=== PATIENT | female | born 1965 | race Caucasian/White ===

== ENCOUNTER → 2018-02-03 08:18 | Outpatient (CLI) | payer MEDICARE, OTHER, SELFPAY ==
--- NOTE | 2018-02-03 08:28 | US_ITS ---
US abdomen limited Ordering Physician: Maynor London Patient Age: 52 years: Female HISTORY: ITS.REASON: ABDOMINAL PAIN RUQ pain 2 months nodularity diarrhea and indigestion TECHNIQUE: Ultrasound right upper quadrant COMPARISON : No prior FINDINGS Pancreas. Unremarkable. Liver. No focal lesions no biliary ductal dilatation. Portal vein normal diameter and normal direction flow. Gallbladder. Trace sludge and debris but no discrete or shadowing gallstones. Gallbladder appears mildly elongated & distended but not tense. It 10 cm length.. No gallbladder wall thickening or other findings. If RUQ pain persist consider HIDA scan Common duct. Normal diameter measuring nearly 2 mm at hilum of liver. Right kidney appears normal. Normal size 9.65 seem in length. No hydronephrosis or mass. IMPRESSION: 1. No gallstones. Only Scant debris gallbladder noted Generous size gallbladder but does not appear to be tense or inflamed. No wall thickening At RUQ pain persist consider HIDA scan 2. Pancreas liver right kidney unremarkable
== END ==
PROVIDERS: Family Provider Emergency Medicine; PCP Family Medicine; Visit Provider Family Medicine
DX: R10.9 Unspecified abdominal pain (principal)
CPT/HCPCS: 76705

== ENCOUNTER → 2020-12-14 08:00 | Outpatient (CLI) | payer MEDICARE, OTHER, SELFPAY ==
[2020-12-14 09:15] LABS: Chol/HDL Ratio 2.9 (1-3.5); Cholesterol 201 mg/dl (140-200); HDL Cholesterol 70 mg/dl (40-60); Triglycerides 54 mg/dl (30-150); VLDL Cholesterol 11 mg/dL (0-40)
[2020-12-14 09:25] LABS: Direct LDL Cholesterol 103.16 mg/dL (100-129)
[2020-12-14 09:30] LABS: 25-OH Vitamin D, Total 18.8 ng/mL (30-100)
[2020-12-15 09:35] LABS: Triiodothyronine (T3) Free 1.6 pg/mL (2.0-4.4)
[2020-12-18 13:01] LABS: Chloride 105 mmol/L (98-107); Potassium 4.5 mmoL/L (3.5-5.1); Sodium 136 mmol/L (136-145)
[2020-12-18 13:03] LABS: Alanine Aminotransferase 11 U/L (12-78); Aspartate Amino Transferase 23 U/L (14-36); Blood Urea Nitrogen 5 mg/dl (7-17); Estimated Glomerular Filt Rate 86 ml/min (>60); GFR (African American) 104 ML/MIN (>60)
[2020-12-18 13:04] LABS: Albumin Level 4.3 g/dl (3.5-5.0); Albumin/Globulin Ratio 1.3 (1.1-1.8); Alkaline Phosphatase 68 U/L (38-126); Anion Gap 11.5 mEq/L (5-15); Bilirubin,Total 0.3 mg/dl (0.2-1.3); Calcium 9.4 mg/dl (8.4-10.2); Carbon Dioxide 24 mmol/L (22.0-30.0); Globulin 3.3 g/dL (1.3-3.2); Glucose 107 mg/dl (74-100); Total Protein,Serum 7.6 g/dl (6.3-8.2)
== END ==
PROVIDERS: Visit Provider Nurse Practitioner Family
DX: E78.5 Hyperlipidemia, unspecified (principal); E55.9 Vitamin D deficiency, unspecified; E89.0 Postprocedural hypothyroidism
CPT/HCPCS: 36415; 80053; 80061; 82306; 84439; 84443; 84481

== ENCOUNTER 2021-03-11 11:19 | Emergency (ER) | payer MEDICARE, OTHER, SELFPAY ==
[2021-03-11 11:31] VITALS: BP 182/104; PULSE 89; RESP 18; TEMP 36.4; O2SAT 96; BMI 27.4
--- NOTE | 2021-03-11 11:32 | XR_ITS ---
PROCEDURE: XR FOOT LT MIN 3V CLINICAL INDICATION: PAIN COMPARISON: No exams were available for comparison FINDINGS: No fracture or dislocation. No lytic or blastic change. There is normal mineralization. The joint spaces are well-preserved. No significant degenerative/arthritic changes. No erosive changes evident. Other findings:None. IMPRESSION: No acute findings. Dictated by: Heath Carrera MD 03/11/2021 12:02 Heath Carrera MD in [place] 03/11/2021 12:02
--- NOTE | 2021-03-11 11:44 | HMH.EDUTC ---
[facility] Disposition Clinical Impression: Foot contusion Qualifiers: Encounter type: initial encounter Laterality: left Qualified Code(s): S90.32XA - Contusion of left foot, initial encounter Disposition: Home, Self-Care Condition on Discharge: Good Instructions: Contusion, How To Perform RICE (Rest, Ice, Compress, Elevate), DI for Foot Sprain Additional Instructions: *weight bearing as tolerated *RICE, Rest the extremity, Ice 15-20 minutes 3-4 times daily, Compress- wear the alberto wrap as discussed as much as possible to help reduce swelling and pain, Elevate the extremity when at rest *Alberto wrap is for support and help control swelling, use it except in the shower. Be sure that is not to tight but not to loose either *Elevate when resting *Ibuprofen every 6-8 hours as needed for pain an inflammation. If need something more can take Tylenol in between doses of Ibuprofen to help Immediately follow up with your family doctor for new or worsening of symptoms, or no noticeable improvement over the next 3-5 days Follow up with Family Doctor for re-evaluation of elevated blood pressure Referrals: Eri Moy [Primary Care Provider] - As needed Time of Disposition: 12:08 Medical Decision Making - Cale Inquiry Pt receiving controlled substance: No Cale was queried for this patient: No Vital Signs: 03/11/21 11:31 03/11/21 12:13 03/11/21 12:14 Temperature 97.6 F 98 F Temperature Source Oral Pulse Rate 87 Pulse Rate [Right] 89 Respiratory Rate 18 18 Blood Pressure 143/90 H Blood Pressure [Right Arm] 182/104 H 143/90 H Blood Pressure Mean [Right Arm] 130 107 Blood Pressure Source [Right Arm] Automatic Cuff Blood Pressure Position [Right Arm] Sitting 02 Sat by Pulse Oximetry 96 - Radiology Data #1 Image(s): Foot/Toes Image Reviewed: Yes I have reviewed radiologist's interpretation No acute findings. [facility] HPI - General Stated complaint: ao 12/30/20 injury to Lt foot Time Seen by Provider: 03/11/21 11:44 Mode of Arrival: Ambulatory Source of Information: Patient Limitations: No Limitations Description of Symptoms (Recalled from Triage Doc. by RN): pt states she hit her L foot on a bedframe ten days ago. she is still having pain and bruising. pt states she has a bone spur in the same area in the top of the foot. HEENT Symptoms (Recalled from RN notes): No Resp Symptoms (Recalled from RN notes): No Skin Symptoms (Recalled from RN notes): No MS Symptoms (Recalled from RN notes): Yes (L foot pain) Functional Status (Recalled from RN notes): na - History of Present Illness Provider Complaint: Patient state that about a week ago she hit the top of her left foot on a metal bed frame and had swelling and bruising States that the bruising is better but still having swelling and pain on and off when she walks States that she was concerned due to having previously been told she has a bone spur in the area that she hit so she came in to get checked - Related Data Allergies Allergy/AdvReac Type Severity Reaction Status Date / Time amoxicillin [AMOXICILLIN] Allergy Mild Verified 03/11/21 11:31 - Worker's Comp Is this a Worker's Comp case?: No [facility] History - Hepatitis A Screen Drug use history?: No High risk sexual behaviors?: No History of sexually transmitted infection?: No Currently employed?: No Childcare worker?: No Do you have indoor plumbing?: Yes Do you have electricity?: Yes Attestation statement:: This patient has been screened for Hepatitis A risk factors. I have reviewed the patient's past medical history: Yes ROS Obtained: Yes All systems reviewed & no additional complaints, Yes Systems reviewed as appropriate & no additional complaints - Constitutional Constitutional: Reports system reviewed and no additional complaints, except as docu, Denies body ache, Denies chills, Denies fever(s), Denies headache(s) - ENT Ears, Nose, Mouth, and Throat: Reports system reviewed and no addit
[2021-03-11 12:13] VITALS: BP 143/90
[2021-03-11 12:14] VITALS: BP 143/90; PULSE 87; RESP 18; TEMP 36.6
== END 2021-03-11 12:16 | disposition home or self-care (01) ==
PROVIDERS: Emergency Provider Nurse Practitioner; PCP Nurse Practitioner Family
DX: S90.32XA Contusion of left foot, initial encounter (principal); W22.8XXA Striking against or struck by other objects, initial encounter; Y92.013 Bedroom of single-family (private) house as the place of occurrence of the external cause
CPT/HCPCS: 73630; 99202; G0463

== ENCOUNTER → 2022-04-29 18:53 | Outpatient (CLI) | payer MEDICARE, OTHER, SELFPAY ==
--- NOTE | 2022-04-29 19:10 | XR_ITS ---
PROCEDURE INFORMATION: Exam: XR Left Foot Exam date and time: 04/29/2022 7:11 PM Age: 56 years old Clinical indication: Pain; Foot; Left; Additional info: Injury to left foot TECHNIQUE: Imaging protocol: Radiologic exam of the Left foot. Views: 3 or more views. COMPARISON: CR XR FOOT LT MIN 3V 03/11/2021 11:51 AM FINDINGS: Bones/joints: No evidence of acute displaced cortical disruption or dislocation. Regional bone density and trabecular pattern have a satisfactory appearance. Mild osteophytosis and eburnation of the midfoot structures and toes. Soft tissues: Normal. IMPRESSION: 1. Mild degenerative changes. 2. No acute fracture is identified.
--- NOTE | 2022-04-29 19:11 | XR_ITS ---
PROCEDURE INFORMATION: Exam: XR Cervical Spine Exam date and time: 04/29/2022 7:05 PM Age: 56 years old Clinical indication: Pain; Other: Parethesia; Additional info: Parethesia bilateral down arms TECHNIQUE: Imaging protocol: Radiologic exam of the cervical spine. Views: 2 or 3 views. COMPARISON: CR CS5 CERVICAL SPINE 4 OR 5 VIEWS 09/04/2017 11:23 AM FINDINGS: Bones/joints: Degenerative spondylosis and facet arthropathy. No acute fracture or spondylolisthesis. Mild rotoscoliosis. Bone demineralization. Soft tissues: Unremarkable. Other findings: Minimal regional arterial calcification. IMPRESSION: Mild degenerative disc and facet disease.
== END ==
PROVIDERS: PCP Nurse Practitioner Family; Visit Provider Nurse Practitioner Family
DX: M79.672 Pain in left foot (principal); S99.922A Unspecified injury of left foot, initial encounter; M54.2 Cervicalgia; R20.2 Paresthesia of skin
CPT/HCPCS: 72040; 73630

== ENCOUNTER → 2022-07-18 13:47 | Outpatient (CLI) | payer MEDICARE, OTHER, SELFPAY ==
--- NOTE | 2022-07-18 13:53 | XR_ITS ---
FINAL REPORT CLINICAL HISTORY: left toe fx COMPARISON: 04/29/2022 FINDINGS: Left foot Three views were obtained. There is a subacute fracture at the distal aspect of the 2nd proximal phalanx with interval healing. IMPRESSION: Healing fracture as above. Reviewed, Interpreted and Dictated by Rowdy Lugo III, MD Transcribed by Magda Martin Authenticated and [facility]
== END ==
PROVIDERS: PCP Nurse Practitioner Family; Visit Provider Orthopaedic Surgery
DX: S99.922A Unspecified injury of left foot, initial encounter (principal); M79.672 Pain in left foot
CPT/HCPCS: 73630

== ENCOUNTER → 2022-07-31 10:09 | Outpatient (CLI) | payer MEDICARE, OTHER, SELFPAY ==
--- NOTE | 2022-07-31 10:09 | MR_ITS ---
FINAL REPORT CLINICAL HISTORY: foot fracture 2nd toe since april, pain. COMPARISON: Plain films dated July and April of 2022 FINDINGS: Multiplanar MR imaging of the left foot was performed without contrast. There is a subacute fracture of the distal aspect of the 2nd proximal phalanx. There is a small osteochondral lesion in the medial talar dome and adjacent distal medial tibial articular surface. The flexor and extensor tendons are intact. No ligamentous injury is identified. The musculature is intact. The plantar aponeurosis is intact. No soft tissue mass or cyst is identified. IMPRESSION: Subacute fracture of the 2nd proximal phalanx. Small osteochondral lesion in the medial talar dome and adjacent medial tibial articular surface. Reviewed, Interpreted and Dictated by Rowdy Lugo III, MD Transcribed by Zeus Goff Authenticated and [facility]
== END ==
PROVIDERS: PCP Nurse Practitioner Family; Visit Provider Orthopaedic Surgery
DX: S90.32XA Contusion of left foot, initial encounter (principal); M79.672 Pain in left foot
CPT/HCPCS: 73718

== ENCOUNTER → 2023-06-09 09:30 | Outpatient (POV) | payer MEDICARE, OTHER, SELFPAY | PROVIDERS: Visit Provider Dermatology | DX: Z00.00 Encounter for general adult medical examination without abnormal findings (principal) ==

== ENCOUNTER 2025-08-09 11:57 | Outpatient (CLI) | payer OTHER, SELFPAY ==
--- OUTSIDE RECORDS SUMMARY | 2025-08-09 12:17 | XMS_ITS | Clinical Summary ---
Author Organization [facility] Address [address] [place] [address] Care Team Providers Care Commercial Diver Name Role Phone Unavailable Primary Care Provider Unavailabl e Family History Medical History Relation Name Comments Thyroid disease Other Relation Name Status Comments Other Social History Tobacco Use Types Packs/Day Years Used Date Smoking Tobacco: Never Assessed Alcohol Use Standard Drinks/Week Comments No 0 (1 standard drink = 0.6 oz pure alcohol) Alcoholic Drinks/day: Never Drank Alcohol Comments Unknown Sex and Gender Information Value Date Recorded Sex Assigned at Not on file Legal Sex Female 7:33 PM EDT Gender Identity Not on file Sexual Orientation Not on file Last Filed Vital Signs Vital Sign Reading Time Taken Comments Blood Pressure - - Pulse - - Temperature - - Respiratory Rate - - Oxygen Saturation - - Inhaled Oxygen Concentration - - Weight 61.2 kg (135 lb 0.2 oz) 05/07/2016 8:02 A M EDT Height 165.1 cm (5' 5 ) 05/07/2016 8:02 AM EDT Body Mass Index 22.47 05/07/2016 8:02 AM EDT Plan of Treatment Not on file
--- OUTSIDE RECORDS SUMMARY | 2025-08-09 12:17 | XMS_ITS | Clinical Summary ---
Author Organization [facility] William T Address [address] [place] [address] Phone Care Team Providers Care Media Librarian Name Role Phone Eri Moy MOIRA Primary Care Provider Allergies Active Allergy Reactions Criticality Noted Date Comments Amoxicillin Rash 07/01/2016 Medications ondansetron (ZOFRAN-ODT) 8 mg Oral Tablet, Rapid Dissolve Take 4 mg by mouth every 6 hours as needed for Nausea (Rarely used). 05/05/2016 Active Levothyroxine (TIROSINT) 13 mcg Oral Capsule Take 13 mcg by mouth daily. 30 Cap 11 07/18/2016 Active metoprolol (LOPRESSOR) 25 mg Oral Tablet Take 12.5 mg by mouth 2 times daily. Active rosuvastatin (CRESTOR) 10 mg Oral Tablet Take 10 mg by mouth nightly. Active fluticasone-umec lidin-vilanter (TRELEGY ELLIPTA) 100-62.5-25 mcg Inhl Disk with Device Inhale 1 Puff into the lungs daily. Active albuterol (PROVENTIL HFA; VENTOLIN HFA) 90 mcg/actuation Inhl HFA Aerosol Inhaler Inhale 2 Puffs into the lungs every 4 hours and prn. Active Cholecalciferol, Vitamin D3, 50 mcg (2,000 unit) Oral Capsule Take 5,000 mcg by mouth every 5 days. Active hydrOXYzine (ATARAX) 25 mg Oral Tablet Take 25 mg by mouth every 6 hours as needed for Itching. Active INCRUSE ELLIPTA 62.5 mcg/actuation Inhl Disk with Device inhale 1 puff by mouth once daily Active HYDROcodone-acet aminophen (NORCO) 5-325 mg Oral Tablet Take 1 Tablet by mouth 3 times daily as needed for Acute Pain (R52). 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 d 07/07/2016 Menopause Asthma Emphysema of lung (HCC) Arthritis Allergy Hypertension Family History Medical History Relation Name Comments Arthritis Mother angely irene Breast Cancer Mother angely irene Cancer Mother angely irene Breast cancer d iagnosed age 83 yo Anxiety Disorder Sister 1 radha irene Asthma Sister 1 radha irene COPD Sister 1 radha irene Depression Sister 1 radha irene Diabetes Sister 1 radha irene High Cholesterol Sister 1 radha irene Thyroid Disease Sister 1 radha irene Arthritis Sister 2 hi amburgey Depression Sister 2 hi amburgey Diabetes Sister 2 hi amburgey High Blood Pressure Sister 2 hi amburgey Hypertension Sister 2 hi amburgey Asthma Sister 3 Mandie Irene Mental Illness Sister 3 Mandie Irene Relation Name Status Comments Mother angely irene Alive Sister 1 radha marlyn Sister 2 hi [place]lisle Alive Sister 3 Mandie Marlyn Alive Social History Tobacco Use Types Packs/Day Years Used Date Smoking Tobacco: Every Day Cigarettes 1 40 Started: 08/08/1985 Smokeless Tobacco: Never Tobacco Cessation:Ready to Q uit: Not Asked; Counseling Given: Not Answered Alcohol Use Standard Drinks/Week Comments No 0 (1 standard drink = 0.6 oz pur e alcohol) Sexually Active Control Partners Comments Never Comments No Sex and Gender Information Value Date Recorded Sex Assigned at Not on file Legal Sex Female 1:52 PM EDT Gender Identity Not on file Sexual Orientation Not on file Last Filed Vital Signs Vital Sign Reading Time Taken Comments Blood Pressure 165/83 03/14/2025 3:18 PM EDT Pulse 72 03/14/2025 3:18 PM EDT Temperature 37 C (98.6 F) 03/14/2025 2:55 PM EDT Respiratory Rate 18 03/14/2025 3:18 PM EDT Oxygen Saturation 98% 03/14/2025 3:18 PM EDT Inhaled Oxygen Concentration - - Weight 78 kg (172 lb) 03/14/2025 2:03 PM EDT Height 167.6 cm (5' 6 ) 03/14/2025 2:03 PM EDT Body Mass Index 27.76 03/14/2025 2:03 PM EDT Plan of Treatment Health Maintenance Due Date Last Done Comments Wellness Exam Medicare 1966 Hepatitis C Screening 1981 Cervical Cancer Screening 1984 Pap Smear 1984 HPV/Pap Cotest 1993 DTaP/TDaP/Td (1 - Tdap) 02/13/2000 02/12/2000 Breast Cancer Screening 2003 FIT 2008 Sigmoidoscopy 2008 Virtual Colonography 2008 Low Dose Lung Cancer Screening 2013 Zoster (1 of 2) 2013 Pneumococcal Vaccine 50+ (2 of 2 - PCV) 10/31/2015 10/31/2014 Cologuard 07/04/2022 07/04/2019 COVID-19 Vaccine (1 - 2024-2 6 season) 2025 Influenza Vaccine (#1) 2025 Colon Cancer Screening 03/13/2028 Colonoscopy 03/13/2028 03/14/2025, 09/03/2023 Hepatitis B Vaccine Aged Out No longe r eligible based on patient's age to complete this topic Meningococcal B Vaccine Aged Out No l onger eligible based on patient's age to complete this topic Procedures Procedure Name Priority Date/Time Associated Diagnosis Comments COLONOSCOPY Routine 03/14/2025 2:52 PM EDT Personal history of colon polyps, unspecified from Last 3 Months or Most Recently Relevant to Health Maintenance Results * COLONOSCOPY (03/14/2025 2:52 PM EDT) Anatomical Region Laterality Modality Endoscopy Addenda Addendum by Nick Barker MD on 03/14/2025 2:54 PM EDT Table formatting from the original result was not included. Findings The terminal ileum appeared normal. Scar with previously placed tattoo was noted at the hepatic flexure. Site has slight nodular appearance, most likely from clip artifact. Cold biopsy done from the area to assess for any recurrent polyp. One 10 mm polyp in the transverse colon; performed cold snare with complete en bloc removal and retrieved specimen Two sessile polyps measuring 5-9 mm in the sigmoid colon; performed cold snare with complete en bloc removal and retrieved specimen Otherwise normal colonoscopy. Patient had CT scan recently at [facility] that showed fatty bowel wall suggestive of possible IBD. So random colon biopsy was done for histologic evaluation. Recommendation Await pathology results Repeat colonoscopy in 3 years, due: 03/13/2028 Pre-Procedure Diagnosis / Indication Personal history of colon polyps, unspecified Post-Procedure Diagnosis None Staff Staff Role Diana Robb, color making supervisor Nurse Cristian Kaur MD Anesthesiologist Jacqui Martell, LI Barker MD Performing Provider Autumn Miller RN Technical Account Representative Kaden Louie RN Technical Account Representative Bharati Grace RN Endoscopy Nurse Medications See Anesthesia Record. Preprocedure A history and physical has been performed, and patient medication allergies have been reviewed. The patient's tolerance of previous anesthesia has been reviewed. The risks and benefits of the procedure and the sedation options and risks were discussed with the patient. All questions were answered and informed consent obtained. ASA 3 - Patient with severe systemic disease Details of the Procedure The patient underwent monitored anesthesia care, which was administered by an anesthesia professional. The patient's blood pressure, heart rate, level of consciousness, oxygen saturation, respirations, ECG and ETCO2 were monitored throughout the procedure. A digital rectal exam was performed. The scope was introduced through the anus and advanced to the cecum. Retroflexion was performed in the rectum. Bowel prep was adequate. The patient experienced no blood loss. The procedure was not difficult. The patient tolerated the procedure well. There were no apparent adverse events. CO2 insufflation was used for the procedure. After withdrawing the scope to transverse colon, scope was reoriented and inserted back to the cecum and right colon was examined second time. Patient provided education and educated on specific discharge instructions. Patient educated on medications given during the procedure and new medications for discharge. Patient verbalizes understanding of discharge education. Patient stable and awaiting transport for discharge. Events Procedure Events Event Event Time ENDO SCOPE IN TIME 03/14/2025 2:26 PM ENDO CECUM REACHED 03/14/2025 2:31 PM ENDO SCOPE OUT TIME 03/14/2025 2:50 PM Specimens ID Type Source Tests Collected by Time 1 : prior EMR site biopsy via forceps Tissue Hepatic flexure PATHOLOGY TISSUE REQUEST Nick Barker MD 03/14/2025 1439 2 : transverse colon polyp via cold snare Tissue Large Intestine, Transverse Colon PATHOLOGY TISSUE REQUEST Nick Barker MD 03/14/2025 1444 3 : random colon biopsies via forceps Tissue Colon PATHOLOGY TISSUE REQUEST Nick Barker MD 03/14/2025 1444 4 : sigmoid colon polyp x2 via cold snare Tissue Large Intestine, Sigmoid Colon PATHOLOGY TISSUE REQUEST Nick Barker MD 03/14/2025 1448 Anesthesia Event Time In Patient In - Proc. Room 02:20 PM Nick Barker MD ENDOSCOPY PROCEDURE ORDERABLES Edited Result - Final from Last 3 Months or Most Recently Relevant to Health Maintenance Insurance [facility] [address] [employer] MEDICARE ADVANTAGE [facility] [place] [facility] [facility] [place] [address] MEDICARE ADVANTAGE on file Care Teams Media Librarian Relationship Specialty Start Date End Date Eri Moy APRN NPI: [id number] [place] [address] [place] [id number] PCP - General Nurse Practitioner-Family 06/01/13
--- OUTSIDE RECORDS SUMMARY | 2025-08-09 12:17 | XMS_ITS | Data Portability ---
Author Organization [facility], [facility] Address [address] [place] [address] Care Team Providers Care Burnt Lime Drawer Name Role Phone GIANNA REID Primary Care Provider GIANNA REID Referring Provider Assessment Encounter Date Assessment Date Assessment LastModified by Organization Details LastModified Time 08/12/2023 08/12/2023 Assessment 1. COPD/Asthma (self reported) *PFT (08/12/2023): +midlfow obstruction, no restriction +HAMMAD response 2. Dyspnea 3. Pulmonary nodules *Chest CT (03/30/2023): mild emphysematous disease; Solitary pleural-based right lower lobe lung mass measuring up to 6 mm, this is well circumcised; and additional solitary pulmonary base lung mass measuring 6 mm is present in the right middle lobe 4. Current smoker, 1 ppd x 43 years 5. Symptoms consistent with JOSIAS: snoring, hypersomnia, brain fog Plan 1. Stop Incruse; RX Trelegy 100 mcg 1 puff daily; Instructed to rinse mouth after each use *Tried/Failed Spiriva, Advair & Incruse 2. Continue Albuterol HFA; discussed indications for use 3. LDCT Chest completed at 03/30/2023 *Order repeat Chest CT w.out (patient request to complete at [facility]) 4. Smoking cessation was discussed with the patient for less than 10 minutes. The detrimental effects to the patient's health of continued smoking was explained. Methods to quit smoking were also discussed to include nicotine replacement therapy and pharmacologic treatment. 5. A1AT *The patient underwent genomic testing for djxmu-1-bxvvnxnz sin deficiency in the office today. Oral swab specimen was obtained by the nurse and sent to the lab for testing 6. Recommend HST-patient currently declines testing 7.RTO in 1 month to review Chest CT imaging for lung nodule follow up PFT The patient underwent pulmonary function testing today to evaluate complaints of dyspnea. Results were discussed with the patient. Not available 08/19/2023 08:59:38 09/11/2023 09/11/2023 Assessment 1. COPD/Asthma (self reported) *PFT (08/12/2023): +midlfow obstruction, no restriction +HAMMAD response 2. Dyspnea 3. Pulmonary nodules *Chest CT (03/30/2023): mild emphysematous disease; Solitary pleural-based right lower lobe lung mass measuring up to 6 mm, this is well circumcised; and additional solitary pulmonary base lung mass measuring 6 mm is present in the right middle lobe 4. Current smoker, 1 ppd x 43 years 5. Symptoms consistent with JOSIAS: snoring, hypersomnia, brain fog Plan 1. Continue Trelegy 100 mcg 1 puff daily; Instructed to rinse mouth after each use *Tried/Failed Spiriva, Advair & Incruse 2. Continue Albuterol HFA; discussed indications for use 3. LDCT Chest completed at [facility] 03/30/2023 *Order repeat Chest CT w.out (patient request to complete at [facility])-pending 4. Smoking cessation was discussed with the patient for less than 10 minutes. The detrimental effects to the patient's health of continued smoking was explained. Methods to quit smoking were also discussed to include nicotine replacement therapy and pharmacologic treatment. 5. A1AT results discussed during todays visit 6. Recommend HST-patient currently declines testing 7. RX Xyzal nightly 8.RTO after Chest CT completed, then again in 4 months Not available 09/14/2023 08:38:46 Plan of Treatment Reminders Order Date Submit Date Provider Last Modified By Organization Details Last Modified Time Details Appointments None recorded. Lab None recorded. Referral None recorded. Procedures None recorded. Surgeries None recorded. Imaging CT, chest, w/o contrast - Patient request to complete at . She was referred to us by Gianna Nieves; Please fax results to [phone] 2022 023 [email or web address] [facility] [address], [place], [address], 3 15:49:23 Medication Orders Trelegy Ellipta 100 mcg-62.5 mcg-25 mcg powder for inhalation [address] [facility] [address] [facility] [place], [address], 3 08:33:23 Xyzal 5 mg tablet 2022 023 [facility] [place], [address], 3 11:39:06 Trelegy Ellipta 100 mcg-62.5 mcg-25 mcg powder for inhalation [address] [facility] [place], [address], 3 11:34:57 Patient TargetsNo targets recorded. Patient InstructionsNo instructions recorded. Reason for Referral None Reported. Results Created Date Observation Date Name Description Value Unit Range Abnormal Flag Note LastModifiedBy Organization Detail LastModifiedTime 08/21/2003/30/2023 LDCT, chest , for lung cance r scree tion No observ ation record ed. [email or web address] Not Available 2022 12:17:59 08/21/2008/12/2023 compl ete PFT w/ post [facility] hodil ator janna metry * No observ ation record ed. [email or web address] Not Available 2022 10:35:33 08/21/2008/12/2023 compl ete PFT w/ post [facility] hodil ator janna metry * No observ ation record ed. [email or web address] Not Available 2022 10:30:21 09/07/20 23 03/30/2023 LDCT, chest , for lung cance r scree tino No observ ation record ed. [email or web address] Not Available 2022 10:56:53 Result Notes None recorded. Problems Name Problem SNOMED Code Status Onset Date Resolution Date Notes Provider Name and Address Organization Details Recorded Time Asthma-project management it specialist cristóbal obstructive pulmonary disease overlap syndrome 4569736991949 9107 Active 2022 Lucero Estrella NP [address], [place], [address], [place] [facility] 3 14:39:26 Dyspnea 206903409 Active 2022 Lucero Estrella NP [address], [place], [address], [place] [facility] 3 11:50:57 Multiple nodules of lung 260877877 Active 2022 Lucero Estrella NP [address], [place], [address], [place] [facility] 3 11:51:09 Heavy tobacco smoker 6839367763090 03 Active 2022 Lucero Estrella NP [address], [place], [address], [place] [facility] 3 11:51:17 Hypersomnia 23902505 Active 2022 Lucero Estrella NP [address], [place], [address], [place] [facility] 3 11:51:33 Problem Notes None recorded. Medical Equipment None Reported. Allergies Allergen ID Allergen Name Allergen Category Reaction Reaction Severity Criticality Documentation Date Start Date Code Code System Note Provider Name and Address Organization Details Recorded Time 08820 insect venom environme nt Not available Not available Not available 08/12/2023 izabella smith [place] [facility] 3 14:06:09 43375 cigarette smoke environme nt Not available Not available Not available 08/12/2023 izabella smith [place] [facility] 3 14:06:13 74762 tree and shrub pollen environme nt,medica tion Not available Not available Not available 08/12/2023 izabella emile null, [place] [facility] 3 14:06:19 42187 losartan medicatio n Not available Not available Not available 08/12/2023 41563 RxNorm izabella emile null, [place] [facility] 3 14:06:25 83565 meloxicam medicatio n Not available Not available Not available 08/12/2023 99062 RxNorm izabella emile null, [place] [facility] 3 14:06:32 00380 amoxicill in medicatio n Not available Not available Not available 08/12/2023 723 RxNorm izabella emile null, [place] [facility] 3 14:06:37 83270 grass pollen environme nt,medica tion Not available Not available Not available 08/12/2023 izabella emile null, [place] [facility] 3 14:06:44 50066 Cytomel medicatio n Not available Not available Not available 08/12/2023 3081 RxNorm izabella emile null, [place] [facility] 3 14:07:17 Medications Name Sig Start Date Stop Date Status Note LastModified by Organization Details LastModified Time hydrocodone 5 mg-acetamin ophen 325 mg tablet TAKE 1 TABLET BY MOUTH EVERY 6 HOURS NEEDED FOR PAIN active Not Available Not Available No t Available lisinopril 20 mg tablet TAKE 1 TABLET BY MOUTH ONCE DAILY active Not Available Not Available No t Available alendronate 70 mg tablet active Not Available Not Available Not Available clindamycin HCl 150 mg capsule TAKE 2 CAPSULES BY MOUTH NOW, THEN 1 CAPSULE 4 TIMES DAILY UNTIL GONE 08/12 completed Not Available Not Available Not Available lisinopril 10 mg tablet 08/12 completed Not Available Not Available Not Available fluoxetine 10 mg capsule TAKE 1 CAPSULE BY MOUTH ONCE DAILY active Not Available Not Available No t Available hydroxyzine HCl 25 mg tablet TAKE 1 TABLET BY MOUTH THREE TIMES DAILY NEEDED active Not Available Not Available No t Available metoprolol succinate ER 25 mg tablet,exte nded release 24 hr TAKE 1 TABLET BY MOUTH ONCE DAILY active Not Available Not Available No t Available albuterol sulfate HFA 90 mcg/actuati on aerosol inhaler INHALE 2 PUFFS BY MOUTH EVERY 4 HOURS NEEDED active Not Available Not Available No t Available losartan 100 mg tablet TAKE 1 TABLET BY MOUTH ONCE DAILY active Not Available Not Available No t Available rosuvastati n 20 mg tablet TAKE 1 TABLET BY MOUTH ONCE DAILY active Not Available Not Available No t Available levocetiriz ine 5 mg tablet TAKE 1 TABLET BY MOUTH ONCE DAILY AT BEDTIME 2023 active Not Available Not Available Not Avai lable sodium,pota ssium,mag sulfates 17.5 gram-3.13 gram-1.6 gram oral soln USE DIRECTED active Not Available Not Available No t Available Incruse Ellipta 62.5 mcg/actuati on powder for inhalation INHALE 1 PUFF BY MOUTH ONCE DAILY active Not Available Not Available No t Available Trelegy Ellipta 100 mcg-62.5 mcg-25 mcg powder for inhalation Inhale 1 puff every day by inhalatio n route for 30 days. 2022 active Not Available Not Available Not Avai lable Tirosint-So l 150 mcg/mL oral solution TAKE 1 ML BY MOUTH ONCE DAILY DIRECTED active Not Available Not Available No t Available Tirosint-So l 175 mcg/mL oral solution TAKE 1 ML BY MOUTH ONCE DAILY DIRECTED FOR 30 DAYS active Not Available Not Available No t Available Vitals Date Recorded Body weight Body mass index (BMI) Body height Oxygen saturation Oxygen saturation in Arterial blood by Pulse oximetry Heart rate Respiratory rate Systolic And Diastolic Provider Name and Address Organization Details Last Updated DateTime 3 08376.8 6 g 25 kg/m2 165.1 cm 96 % 96 % 78 /min 18 /min 178/88 mm[Hg] izabella HINKLE [facility] 3 13:59:37 Date Recorded Body height Oxygen saturation Oxygen saturation in Arterial blood by Pulse oximetry Heart rate Respiratory rate Systolic And Diastolic Provider Name and Address Organization Details Last Updated DateTime 3 165.1 cm 96 % 96 % 78 /min 18 /min 170/88 mm[Hg] izabella baptiste [place] [facility] 11:19:05 Social History Question Answer Notes LastModified by Organizat ion Details LastModified Time Tobacco Smoking Status Current Every Day Smoker izabella baptiste null, [place] [facility] 08/12/2023 14:01:52 Do You Have An Advance Directive? No [email or web address] Information not available 08/12/2023 Is Your Home Air Conditioned? Yes [email or web address] Information not available 08/12/2023 Do You Have A Medical Power Of Hand Coremaker? No [email or web address] Information not available 08/12/2023 What Was The Date Of Your Most Recent Tobacco Screening? 08/12/2023 [email or web address] Information not available 08/12/2023 What Is Your Current Pack Years? 30ormorepack years [email or web address] Information not available 08/12/2023 Do You Have Any Pets? Yes [email or web address] Information not available 08/12/2023 What Is Your Relationship Status? Unknown [email or web address] Information not available 08/12/2023 At What Age Did You Start Smoking Tobacco? 14 [email or web address] Information not available 08/12/2023 Are There Any Smokers In Your House? Yes [email or web address] Information not available 08/12/2023 How Much Tobacco Do You Smoke? 1 PPD Information not available 08/12/2023 Has Tobacco Cessation Counseling Been Provided? Yes [email or web address] Information not available 08/12/2023 On What Date Was Tobacco Cessation Counseling Provided? 08/12/2023 [email or web address] Information not available 08/12/2023 How Many Years Have You Smoked Tobacco? 40 [email or web address] Information not available 08/12/2023 Have You Recently Traveled Abroad? No [email or web address] Information not available 08/12/2023 Are You Currently In School? Yes [email or web address] Information not available 08/12/2023 Sex: Unknown Functional Status Question Answer Note LastModified by Organizat ion Details LastModified Time Do you or have you ever used any other forms of tobacco or nicotine? No [email or web address] Information not available 08/12/2023 Are you currently employed? 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 Family History Nothing Reported. Medical History No medical history recorded. Gynecological HistoryNo gynecological history recorded. Obstetrics History GPAL:G 0 P 0 0 0 0 Past Encounters Encounter ID Performer Location Encounter Start Date Encounter Closed Date Diagnosis/Indication Diagnosis SNOMED-CT Code Diagnosis ICD10 Code Diagnosis IMO Codes Diagnosis Note [id number] Lucero Estrella NP [facility] [address] [place] [address] [address] [place] [address] 08/12/2023 13:26:10 08/12/2023 15:16:26 Asthma-chronic obstructive pulmonary disease overlap syndrome 2813513434 4437139 J44.9 Dyspnea 728686459 R06.00 Multiple n odules of lung 137154005 R91.8 Hypersomnia 92502873 G47 .10 Heavy tobacco smoker 567 0674373 45582 Z72.0 [id number] Lucero Estrella NP [facility] [address] [place] [address] [address] [place] [address] 09/11/2023 11:00:01 09/11/2023 11:43:05 Asthma-chronic obstructive pulmonary disease overlap syndrome 1689996323 6522186 J44.9 Dyspnea 286250894 R06.00 Multiple n odules of lung 980666543 R91.8 Hypersomnia 95195067 G47 .10 Heavy tobacco smoker 007 5646825 71632 Z72.0 Health Concerns Section Related Observation LastModified by Organization Detai ls LastModified Time None Recorded Concern Status LastModified by Organization Details LastModified Time None Recorded Advance Directives Directive N: Payers Insurance Date Sequence Insurance Name Policy Number Policy Soto Covered Member ID Soto Member ID Guarantor Name 01/08/2024 1 [place]MEDIC[place] REPLAC[place]/ ADVANTAGE - HMO) [id number] Ene Andrade [id number] Ene Andrade 09/14/2023 2 [facility] Ene Andrade [id number] Ene Andrade Notes Date Note Type Note Provider Name and Address Organization Details Recorded Time 08/12/2023 text/html ROS as noted in the HPI This is a 57 year-old female who presents to the office today as a new patient referred by Gianna Martin for the evaluation of abnormal chest imaging.Patient reports she was originally referred to [facility] for abnormal imaging but office called and told her nodules were to small. Patient reports a history of COPD , asthma and exposure to TB as a child. Previous pulmonary /[facility]thma care in [facility] and with Dr. Azar. Patient complains of a productive cough with clear mucus, shortness of breath with exertion and anxiety and wheezing that increases at night. She has an albuterol inhaler that she does not use and Incruse 1 puff daily. Patient is a current smoker 1 ppd x 43 years. She has 2 cats and a dog in the home. Former enviromental exposures include tobacco farming. A focused sleep assessment is positive for snoring, hypersomnia, brain fog. Denies any fever, chills, nausea, vomiting, or diarrhea. Lucero Estrella NP [address], [place], [address], [facility] 08/19/2023 09:01:15 09/11/2023 text/html ROS as noted in the HPI This is a 57 year-old female who presents to the office today for the ongoing management of pulmonary nodules, COPD and asthma. Patient denies any significant medical events since her last visit. Patient continues Trelegy 100 mcg daily. She complains of an increased cough and occasional wheezing at night. She notes rare use of her albuterol inhaler. Shortness of breath is at baseline. Patient continues to smoke 1 ppd. Denies any fever, chills, nausea, vomiting, or diarrhea. Lucero Estrella NP [address], [place], [address], [facility] 09/14/2023 08:39:36 OBGyn Episode No OBEpisode recorded.
--- OUTSIDE RECORDS SUMMARY | 2025-08-09 12:18 | XMS_ITS | Clinical Summary ---
Author Organization [facility] Address [address] [place] [address] Care Team Providers Care Runner Worker Name Role Phone Soledad Hyde MD Primary Care Provider [phone] Allergies Active Allergy Reactions Criticality Noted Date Comments Amoxicillin Rash Low 01/20/2018 Medications FLUoxetine (PROzac) 40 MG capsule Take 40 mg by mouth Daily. Active simvastatin (ZOCOR) 20 MG tablet Take 20 mg by mouth Every Night. Active Loratadine 10 MG capsule Take 10 mg by mouth Daily. Active montelukast (SINGULAIR) 10 MG tablet Take 10 mg by mouth Every Night. Active ondansetron (ZOFRAN) 4 MG tablet Take 4 mg by mouth Every 8 (Eight) Hours As Needed for Nausea or Vomiting. Active levothyroxine (SYNTHROID, LEVOTHROID) 75 MCG tabletIndications:P ostablative hypothyroidism Take 1 tablet by mouth Daily. 30 tablet 5 8 Active Active Problems Problem Noted Date Diagnosed Date Migraines Hyperlipidemia H/O Graves' disease GERD (gastroesophageal reflux disease) Fibromyalgia, primary Depression COPD (chronic obstructive pulmonary disease) Bipolar disorder Asthma Family History Medical History Relation Name Comments Hyperlipidemia Brother Hypertension Brother Liver cancer Father Breast cancer Mother Mental illness Mother Migraines Mother Stroke Mother Diabetes Sister Hyperlipidemia Sister Hypertension Sister Hypothyroidism Sister Mental illness Sister Relation Name Status Comments Brother Father Mother Sister Social History Tobacco Use Types Packs/Day Years Used Date Smoking Tobacco: Every Day Cigarettes Smokeless Tobacco: Never Alcohol Use Standard Drinks/Week Comments No 0 (1 standard drink = 0.6 oz pur e alcohol) Abuse Screen Answer Date Recorded Unsafe at Home or Work/School Not on file Feels Threatened by Someone? Not on file 08/2023 Does Anyone Keep You from Co ntacting Others or Doint Things Outside the Home? Not on file 07/15/2023 Physical Sign of Abuse Present Not on file 1 Housing Stability Answer Date Recorded Current Living Arrangements Not on file 07/05 Potentially Unsafe Housing Conditions Not on mickey e 07/15/2023 Family and Community Support Answer Samson e Recorded Help with Day-to-Day Activities Not on file 07/15/2023 Lonely or Isolated Not on file 07/15/2023 Employment Answer Date Recorded Do you want help finding or keeping work or a brandon b? Not on file 07/15/2023 Disabilities Answer Date Recorded Concentrating, Remembering, or Making Decisions Difficulty Not on file 07/15/2023 Doing Errands Independently Difficulty Not on fi le 07/15/2023 Education Answer Date Recorded Help with school or training? Not on file Preferred Language Not on file 07/15/2023 Comments Unknown Sex and Gender Information Value Date Recorded Sex Assigned at Not on file Legal Sex Female 4:16 PM EST Gender Identity Not on file Sexual Orientation Not on file Last Filed Vital Signs Vital Sign Reading Time Taken Comments Blood Pressure 168/70 01/20/2018 1:41 PM EDT Pulse 96 01/20/2018 1:41 PM EDT Temperature - - Respiratory Rate - - Oxygen Saturation 98% 01/20/2018 1:41 PM EDT Inhaled Oxygen Concentration - - Weight 66.2 kg (146 lb) 01/20/2018 1:41 PM EDT Height 165.1 cm (5' 5 ) 01/20/2018 1:41 PM EDT Body Mass Index 24.3 01/20/2018 1:41 PM EDT Plan of Treatment Health Maintenance Due Date Last Done Comments Annual Gynecologic Pelvic and Breast Exam 1963 LIPID PANEL 1963 Pneumococcal Vaccine 50+ (1 of 2 - PCV) 1982 TDAP/TD VACCINES (1 - Tdap) 1982 MAMMOGRAM 2003 COLOGUARD 2008 COLON CANCER SCREENING 5 YEAR SIGMOIDOSCOPY 2008 COLONOSCOPY [address] CANCER SCREENING 2008 [address] COLONOGRAPHY 2008 FECAL OCCULT BLOOD TEST 2008 FIT Testing (1 year) 2008 ZOSTER VACCINE (1 of 2) 2013 ANNUAL PHYSICAL 08/19/2017 HEPATITIS C SCREENING 08/19/2017 INFLUENZA VACCINE 05/05/2025 Insurance MEDICARE [facility] Care Teams Runner Worker Relationship Specialty Start Date End Date Soledad Hyde MD [address] [facility] [address] [place] [id number] PCP - General White Mixing Operator 01/20/18
[2025-08-09 13:33] LABS: Free T4 (Free Thyroxine) 0.82 ng/dl (0.78-2.19)
[2025-08-09 13:47] LABS: Thyroid Stimulating Hormone 21.80 uIU/mL (0.465-4.68)
== END 2025-08-09 23:59 | disposition home or self-care (01) ==
LOC: LAB 11:58
PROVIDERS: PCP Internal Medicine; Visit Provider Student in an Organized Health Care Education/Training Program
DX: E03.9 Hypothyroidism, unspecified (principal)
CPT/HCPCS: 36415; 84439; 84443; 86364